=== PATIENT | female | born 1995 | race Two or more races ===

== ENCOUNTER 2021-08-19 03:34 | Emergency (ER) | payer OTHER ==
[~2021-08-19] VITALS: Ht 160 cm; Wt 61.7 kg
[2021-08-19] MEDS ORDERED: KETO10TA2 PO (07:15)
== END 2021-08-19 07:46 ==
LOC: ER 03:34
DX: S43.035A Inferior dislocation of left humerus, initial encounter (principal); Y93.41 Activity, dancing; Y93.9 Activity, unspecified; Y92.9 Unspecified place or not applicable